=== PATIENT | male | born 2000 | race Caucasian/White ===

== ENCOUNTER 2022-07-11 16:29 | Emergency (ER) | payer MEDICARE, OTHER ==
[~2022-07-11] VITALS: Ht 180.3 cm; Wt 68.2 kg
[2022-07-11] MEDS ORDERED: DOCU-385 PO (16:37)
[2022-07-11] MEDS ORDERED: ACET-3385 PO (16:37)
[2022-07-11] MEDS ORDERED: CHLO5CAP4 PO (16:37)
[2022-07-11] MEDS ORDERED: GABA-1181 PO (16:37)
[2022-07-11] MEDS ORDERED: BACLOFEN 10 MG TABLET PO ONE (18:15)
[2022-07-11] MEDS ORDERED: KETOROLAC TROMETHAMINE 60 MG/2 ML VIAL IM ONE (18:15)
[2022-07-11] MEDS ORDERED: LIB25 PO (19:34)
[2022-07-11] MEDS ORDERED: BACL10TA PO (19:34)
[2022-07-11 19:54] VITALS: BP 129/73
== END 2022-07-11 20:44 | disposition home or self-care (01) ==
LOC: EMS 16:29
DX: G89.29 Other chronic pain (principal); F10.20 Alcohol dependence, uncomplicated; F41.9 Anxiety disorder, unspecified; F32.A Depression, unspecified; F17.210 Nicotine dependence, cigarettes, uncomplicated; F12.90 Cannabis use, unspecified, uncomplicated; Z88.0 Allergy status to penicillin
CPT/HCPCS: 99283; 96372; J1885